=== PATIENT | male | born 1985 | race Caucasian/White ===

== ENCOUNTER 2024-02-03 15:43 | Emergency (ER) | payer BC ==
[2024-02-03 15:58] VITALS: RESP 18; BMI 25.7
[2024-02-03] MEDS ORDERED: ceFAZolin SODIUM 1 GM VIAL ONE (16:47)
[2024-02-03] MEDS ORDERED: ACETAMINOPHEN 325 MG TABLET (FP) ONE (16:47)
[2024-02-03] MEDS ORDERED: DIPHTH,PERTUSS(ACELL),TET 0.5 ML DISP.SYRIN IM ONE (16:47)
[2024-02-03 16:51] LABS: BASO % 0.5 % (0-2.0); EOS % 2.5 % (0-4.5); HEMATOCRIT 43.1 % (35.4-49); HEMOGLOBIN 14.8 GM/dL (11.7-16.9); LYMPH % 23.3 % (8-40); MCH 31.5 pg (25.7-33.7); MCHC 34.3 g/dl (32.0-35.9); MEAN CELL VOLUME 91.7 fl (80-96); MONO % 7.8 % (3.8-10.2); NEUT % 65.9 % (42.8-82.8); PLATELET COUNT 126 10^3/uL (134-434); RBC 4.69 M/mm3 (4.00-5.60); RDW 12.7 % (11.9-15.9)
[2024-02-03 16:57] LABS: INR 1.07 (0.83-1.09); PROTHROMBIN TIME (PATIENT) 12.3 SEC (9.7-13.0)
[2024-02-03 16:59] LABS: ACTIVATED PTT 24.8 SECONDS (25.2-36.5)
[2024-02-03] MEDS: CEFAZOLIN 1 GM in DEXTROSE 5%-WATER - 50 ML IVPB ONE (17:00)
[2024-02-03] MEDS: DIPHTH,PERTUSS(ACELL),TET 0.5 ML DISP.SYRIN IM ONE (17:00)
[2024-02-03] MEDS: ACETAMINOPHEN 500 MG TABLET (FP) PO ONE (17:01)
[2024-02-03 17:14] LABS: POTASSIUM 4.4 mmol/L (3.5-5.1)
[2024-02-03 17:16] LABS: CALCIUM 9.3 mg/dL (8.5-10.1)
[2024-02-03 17:17] LABS: ALBUMIN 4.2 g/dl (3.4-5.0)
[2024-02-03 17:22] LABS: BILIRUBIN,TOTAL 0.6 mg/dL (0.2-1); TOT PROT 7.6 g/dl (6.4-8.2)
[2024-02-03] MEDS ORDERED: morphine SULFATE 4 MG/ML VIAL ONE (19:37)
[2024-02-03 19:44] VITALS: BP 144/79; PULSE 68; TEMP 98.2
[2024-02-03] MEDS: morphine CARPU-JECT 4 MG/1 ML DISP.SYRIN IVPUSH ONE (19:44)
== END 2024-02-03 21:06 | disposition short-term general hospital (02) ==
LOC: JER 15:43
PROC: 3E03329 Introduction of Other Anti-infective into Peripheral Vein, Percutaneous Approach (ICD-10-PCS; principal; 2024-02-03)
PROC: 3E033NZ Introduction of Analgesics, Hypnotics, Sedatives into Peripheral Vein, Percutaneous Approach (ICD-10-PCS; 2024-02-03)
PROC: 3E0234Z Introduction of Serum, Toxoid and Vaccine into Muscle, Percutaneous Approach (ICD-10-PCS; 2024-02-03)
DX: S81.811A Laceration without foreign body, right lower leg, initial encounter (principal); W22.8XXA Striking against or struck by other objects, initial encounter; Z23 Encounter for immunization
CPT/HCPCS: 36415; 73590-TC-RT-FY; 80053; 85025; 85610; 85730; 86850; 86900; 86901; 90715; 99285-25